=== PATIENT | female | born 2000 | race Two or more races ===

== ENCOUNTER 2022-03-05 17:27 | Observation (INO) | payer SELFPAY ==
[~2022-03-05] VITALS: Ht 172.7 cm; Wt 131.5 kg
[2022-03-05] MEDS ORDERED: PREN-96 PO (18:29)
== END 2022-03-05 18:47 | disposition home or self-care (01) ==
LOC: LDRP 17:27
PROVIDERS: ADMIT Obstetrics & Gynecology; ATTEND Obstetrics & Gynecology
DX: O62.9 Abnormality of forces of labor, unspecified (principal); O26.859 Spotting complicating pregnancy, unspecified trimester; Z3A.00 Weeks of gestation of pregnancy not specified
CPT/HCPCS: 59025; 81002; 94760; G0378

== ENCOUNTER 2022-03-15 10:42 | Observation (INO) | payer OTHER, MEDICAID ==
[~2022-03-15 10:42] MED LIST: PREN-96 PO
== END 2022-03-15 11:39 | disposition home or self-care (01) ==
LOC: LDRP 10:42 → UNDOADMOB 10:42 → LDRP 11:02
PROVIDERS: ADMIT Obstetrics & Gynecology; ATTEND Obstetrics & Gynecology
DX: O62.9 Abnormality of forces of labor, unspecified (principal); O26.892 Other specified pregnancy related conditions, second trimester; R10.9 Unspecified abdominal pain; O21.2 Late vomiting of pregnancy; Z3A.26 26 weeks gestation of pregnancy
CPT/HCPCS: 59025; 81002; 94760; 94762; G0378